=== PATIENT | male | born 1995 | race Caucasian/White ===

== ENCOUNTER 2019-09-12 16:08 | Emergency (ER) | payer MEDICAID ==
[2019-09-12 16:16] VITALS: BP 137/65
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
== END 2019-09-12 18:45 | disposition home or self-care (01) ==
LOC: ER 16:08
DX: S02.2XXA Fracture of nasal bones, initial encounter for closed fracture (principal); Y04.2XXA Assault by strike against or bumped into by another person, initial encounter; F17.200 Nicotine dependence, unspecified, uncomplicated
CPT/HCPCS: 70160; 99283